=== PATIENT | female | born 1990 | race Caucasian/White ===

== ENCOUNTER 2024-03-12 16:07 | Outpatient (CLI) | payer OTHER | END 2024-03-12 16:41 | disposition home or self-care (01) | LOC: NST 16:07 | PROVIDERS: ATTEND Obstetrics & Gynecology | DX: Z34.83 Encounter for supervision of other normal pregnancy, third trimester (principal) ==

== ENCOUNTER 2024-04-04 14:00 | Inpatient (IN) | payer OTHER ==
[~2024-04-04] VITALS: Ht 165.1 cm; Wt 74.4 kg
[2024-04-08] VITALS (9 sets, daily range): BP systolic 110–131; BP diastolic 61–80
[2024-04-08] MEDS ORDERED: PRENATAL TABLE1 EAC1 PO (01:47)
[2024-04-08] MEDS ORDERED: RINGERS SOLUTION,LACTATED 1,000 ML IV SCH (04:45)
[2024-04-08] MEDS ORDERED: MORPHINE SULFATE 4 MG/ML CARTRIDGE IV PRN (04:45)
[2024-04-08] MEDS ORDERED: ERYTHROMYCIN BASE 1 GM TUBE OP ONE (07:10)
[2024-04-08] MEDS ORDERED: OXYTOCIN 20 UNITS/1000ML RL PIGGYBAG IV ONE (07:10)
[2024-04-08] MEDS ORDERED: CHLORHEXIDINE GLUCONATE 120 ML BOTTLE TOP ONE (07:10)
[2024-04-08] MEDS ORDERED: LIDOCAINE HCL 1% 10ML VIAL ONE (07:10)
[2024-04-08] MEDS ORDERED: OXYTOCIN 20 UNITS/500ML RL PIGGYBAG IV ONE (07:52)
[2024-04-08] MEDS ORDERED: OXYTOCIN 500 ML IV SCH (08:30)
[2024-04-08] MEDS ORDERED: OXYTOCIN 1,000 ML IV ONE (08:45)
[2024-04-08] MEDS ORDERED: ERYTHROMYCIN BASE 1 GM TUBE OP SCH (08:45)
[2024-04-08] MEDS ORDERED: IBUprofen 400 MG TABLET PO PRN (08:45)
[2024-04-08] MEDS ORDERED: CHLORHEXIDINE GLUCONATE 120 ML BOTTLE TOP SCH (08:45)
[2024-04-08] MEDS ORDERED: PNV,CALCIUM 72/IRON/FOLIC ACID 1 TAB TABLET PO SCH (09:00)
[2024-04-08] MEDS ORDERED: LIDOCAINE HCL 1% 10ML VIAL IJ ONE (10:15)
[2024-04-09 00:24] VITALS: BP 106/69
[2024-04-09 06:20] VITALS: BP 100/61
[2024-04-09 06:31] LABS: HEMATOCRIT 30.4 % (36.0-45.00); HEMOGLOBIN 10.2 g/dL (12.0-15.00); MEAN CELL VOLUME 86.9 fL (80.00-100.00); MEAN CORPUSCULAR HEMOGLOBIN 29.2 pg (27.00-32.0); MEAN CORPUSCULAR HGB CONC 33.6 g/dl (32.0-36.0); PLATELET COUNT 146 K/uL (150-450); RED CELL DISTRIBUTION WIDTH 13.1 % (11.5-14.5)
[2024-04-09 08:18] VITALS: BP 118/72; O2SAT 99
[2024-04-09 12:01] VITALS: BP 118/71
[2024-04-09 15:48] VITALS: BP 103/70
[2024-04-10 01:48] VITALS: BP 110/68
[2024-04-10 08:49] VITALS: BP 115/75
[2024-04-10 11:51] VITALS: BP 115/75
== END 2024-04-10 11:03 | disposition home or self-care (01) | DRG 807 ==
LOC: LDR 04-08 04:04 → OB/GYN 04-08 04:04 → LDR 04-17 14:00
PROVIDERS: Obstetrics & Gynecology Gynecology; ADMIT Obstetrics & Gynecology; ATTEND Obstetrics & Gynecology
PROC: 10E0XZZ Delivery of Products of Conception, External Approach (ICD-10-PCS; principal; 2024-04-08)
PROC: 0UQMXZZ Repair Vulva, External Approach (ICD-10-PCS; 2024-04-08)
PROC: 4A1HXCZ Monitoring of Products of Conception, Cardiac Rate, External Approach (ICD-10-PCS; 2024-04-08)
DX: O70.0 First degree perineal laceration during delivery (principal); Z37.0 Single live birth; Z3A.38 38 weeks gestation of pregnancy; Z20.822 Contact with and (suspected) exposure to COVID-19